=== PATIENT | female | born 1970 | race African-American/Black ===

== ENCOUNTER 2017-12-17 10:58 | Outpatient (CLI) | payer BC | END 2017-12-17 10:59 | disposition home or self-care (01) | LOC: BICMAMMO 10:58 | PROVIDERS: ATTEND Obstetrics & Gynecology | DX: Z12.31 Encounter for screening mammogram for malignant neoplasm of breast (principal) | CPT/HCPCS: 77063; 77067 ==

== ENCOUNTER 2022-08-25 14:50 | Outpatient (CLI) | payer BC | END 2022-08-25 14:51 | disposition home or self-care (01) | LOC: BICRAD 14:50 | PROVIDERS: ATTEND Family Medicine | DX: M54.2 Cervicalgia (principal); M54.50 Low back pain, unspecified | CPT/HCPCS: 36415; 72040; 72100; 80053; 80061; 82306; 83036; 85025 ==